=== PATIENT | female | born 2000 | race Caucasian/White ===

== ENCOUNTER 2020-08-16 15:52 | Emergency (ER) | payer OTHER ==
[2020-08-16] MEDS ORDERED: ACETAMINOPHEN TAB 500 MG TAB PO STA (16:26)
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
[2020-08-16 19:40] VITALS: BP 110/78; PULSE 92; RESP 16; TEMP 98.1
== END 2020-08-16 19:38 | disposition home or self-care (01) ==
LOC: SUPCPDRO 15:52 → EC 15:52
DX: R51.9 Headache, unspecified (principal); M25.511 Pain in right shoulder; J45.909 Unspecified asthma, uncomplicated; V89.2XXA Person injured in unspecified motor-vehicle accident, traffic, initial encounter; Y92.410 Unspecified street and highway as the place of occurrence of the external cause
CPT/HCPCS: 70450; 99284